=== PATIENT | female | born 1955 | race Caucasian/White ===

== ENCOUNTER 2023-03-15 05:49 | Inpatient (IN) ==
[2023-03-15] MEDS ORDERED: Buffered Lidocaine 1% SYRIN 1 ml INTRADERM ONE (06:00)
[2023-03-15] MEDS ORDERED: NS 0.9% 1000 ml BAG 1,000 ML IV SCH (06:00)
[2023-03-15] MEDS ORDERED: ceFAZolin 2 GM in NS PREMIX 2 GM/100 ML BAG IVPB ONE (06:15)
[2023-03-15 06:44] LABS: Rapid COVID-19 Molecular Undetected (Undetected)
[2023-03-15] MEDS ORDERED: fentaNYL 250 mcg/5 ml 50 MCG/ML 5 ml VIAL (250 MCG) ONE ×2 (06:52→10:59)
[2023-03-15] MEDS ORDERED: Midazolam 2 mg/2 ml VIAL 1 mg/ml 2 ml VIAL (2 mg) ONE (06:52)
[2023-03-15] MEDS ORDERED: Dexamethasone IV 4 MG/ML VIAL 1 ml VIAL ONE (06:52)
[2023-03-15] MEDS ORDERED: Ondansetron 4 mg VIAL 2 MG/ML 2 ml VIAL ONE ×2 (06:52→10:52)
[2023-03-15] MEDS ORDERED: Propofol 10 MG/ML 20 ML BTL ONE (06:52)
[2023-03-15] MEDS ORDERED: Lidocaine 2% PF 5 ML VIAL ONE (06:52)
[2023-03-15] MEDS ORDERED: Rocuronium 50 mg VIAL 10 mg/ml 5 ml VIAL (50 mg) ONE (06:53)
[2023-03-15] MEDS ORDERED: Lidocaine 4% CREAM (LMX) 5 GM TUBE TOPICAL ONE (07:36)
[2023-03-15] MEDS ORDERED: Bupivacaine 0.5% SDV PF 30ML VIAL ONE (07:56)
[2023-03-15] MEDS ORDERED: ISOSULFAN BLUE 1% 5 ML VIAL 10 MG/ML SUBCUT ONE (07:57)
[2023-03-15] MEDS ORDERED: Heparin 5000 UNITS/ML 1 mL VIAL ONE (09:09)
[2023-03-15] MEDS ORDERED: HYDROmorphone 1 MG/1 ML SYRINGE IV PRN (09:56)
[2023-03-15] MEDS ORDERED: Prochlorperazine 5 mg/ml 2 ml VIAL (10 mg) IV PRN (09:56)
[2023-03-15] MEDS ORDERED: Naloxone 0.4 mg VIAL 0.4 mg/ml 1 ml VIAL IV PRN (09:56)
[2023-03-15] MEDS ORDERED: fentaNYL 100 mcg/2 ml 50 MCG/ML VIAL IV PRN (09:56)
[2023-03-15] MEDS ORDERED: Phenylephrine 40 mcg/mL 10mL (400mcg) SYRINGE ONE (10:26)
[2023-03-15] MEDS ORDERED: HYDROmorphone 0.5 MG/0.5 ML SYRINGE ONE (10:59)
[2023-03-15] MEDS ORDERED: Acetaminophen IV 1 GM/100ML 1,000 MG/100 ML BAG IV ONE (11:21)
[2023-03-15] MEDS ORDERED: ceFAZolin VIAL VIAL ONE ×2 (12:17)
[2023-03-15] MEDS ORDERED: Levalbuterol HFA INHALER MDI ONE (12:44)
[2023-03-15] MEDS ORDERED: Benzocaine (plain) Lozenge 15 MG PO PRN (15:43)
[2023-03-15] MEDS ORDERED: fentaNYL 100 mcg/2 ml 50 MCG/ML VIAL ONE (16:35)
[2023-03-15] MEDS: ceFAZolin 2 GM in NS PREMIX 2 GM/100 ML BAG IVPB SCH (18:25)
[2023-03-15] MEDS ORDERED: ceFAZolin 2 GM in NS PREMIX 2 GM/100 ML BAG IVPB SCH (18:30)
[2023-03-15] MEDS: Heparin 5000 UNITS/ML 1 mL VIAL SUBCUT SCH (20:59)
[2023-03-16] MEDS: HYDROcodone/ACETAMIN 5/325 mg TAB PO PRN ×2 (02:00→08:54)
[2023-03-16] MEDS: ceFAZolin 2 GM in NS PREMIX 2 GM/100 ML BAG IVPB SCH ×2 (02:09→10:17)
[2023-03-16] MEDS: Heparin 5000 UNITS/ML 1 mL VIAL SUBCUT SCH (05:51)
[2023-03-16] MEDS ORDERED: Tiotropium Brom/Olodaterol MDI (ACUTE) INH SCH (09:00)
[2023-03-16 10:01] VITALS: BP 139/78
== END 2023-03-16 13:50 | disposition home or self-care (01) | DRG 581 ==
LOC: AA 05:49 → SSU 17:19
PROVIDERS: ADMIT Student in an Organized Health Care Education/Training Program; ATTEND Student in an Organized Health Care Education/Training Program